=== PATIENT | male | born 1985 | race Caucasian/White ===

== ENCOUNTER 2024-09-30 03:51 | Emergency (ER) | payer MEDICAID ==
[~2024-09-30] VITALS: Ht 170.2 cm; Wt 78.0 kg
[2024-09-30 03:59] VITALS: TEMP 36.8; O2SAT 98
[2024-09-30] MEDS: HYDROCODONE/ACETAMINOPHEN 5/325MG TABLET PO ONE (04:30)
[2024-09-30] MEDS: TETANUS, DIPHTHERIA, PERTUSSIS VAC/PF 0.5ML (>10YR OLD) IM ONE (05:04)
[2024-09-30] MEDS ORDERED: TOPUD PO (06:27)
[2024-09-30 07:59] VITALS: BP 136/80; PULSE 88; RESP 18
[2024-09-30] MEDS: IBUPROFEN 400MG TABLET PO ONE (07:59)
[2024-09-30] MEDS ORDERED: IBUP-2028 PO (09:18)
[2024-09-30] MEDS ORDERED: T3 PO (09:18)
== END 2024-09-30 10:45 | disposition home or self-care (01) ==
LOC: ER 03:51
DX: S82.142A Displaced bicondylar fracture of left tibia, initial encounter for closed fracture (principal); S01.01XA Laceration without foreign body of scalp, initial encounter; Z79.1 Long term (current) use of non-steroidal anti-inflammatories (NSAID); X58.XXXA Exposure to other specified factors, initial encounter; Y93.89 Activity, other specified; Y92.89 Other specified places as the place of occurrence of the external cause; Y99.8 Other external cause status
CPT/HCPCS: 12002; 70486; 71045; 73502; 73562; 73700; 90471; 90715; 99285